=== PATIENT | male | born 1975 | race Caucasian/White ===

== ENCOUNTER 2020-05-17 16:13 | Emergency (ER) | payer BC ==
[2020-05-17] MEDS ORDERED: Lidocaine 1% 10 ML MDV INJECT ONE (17:00)
[2020-05-17] MEDS ORDERED: Diphtheria,Pertussis(Acell),Tetanus Vaccine 0.5 ML SDV IM ONE (17:42)
--- NOTE | 2020-05-17 17:55 | EDM.PDOC ---
ED HPI GENERAL MEDICAL PROBLEM - General Chief Complaint: Laceration Stated Complaint: FISH HOOK Time Seen by Provider: 05/17/20 17:25 Source of Information: Reports: Patient History Limitations: Reports: No Limitations - History of Present Illness INITIAL COMMENTS - FREE TEXT/NARRATIVE: 45 years old male was fishing today & accidently stick one part of hook into thenar eminence of right hand . NO bleeding , No swelling Onset: Today, Sudden Duration: Hour(s): (4) Quality: Reports: Ache, Dull Severity: Mild Improves with: Reports: None Worsens with: Reports: None Review of Systems - Review of Systems Review Of Systems: See Below Constitutional: Reports: No Symptoms Eyes: Reports: No Symptoms Respiratory: Reports: No Symptoms Cardiovascular: Reports: No Symptoms GI/Abdominal: Reports: No Symptoms Musculoskeletal: Reports: No Symptoms (fish hook stuck to right hand thenar eminence ) ED EXAM, GENERAL - Physical Exam Exam: See Below Exam Limited By: No Limitations General Appearance: Alert, WD/WN Head: Atraumatic Respiratory/Chest: No Respiratory Distress Cardiovascular: Normal Peripheral Pulses GI/Abdominal: Normal Bowel Sounds Back Exam: Normal Inspection Extremities: Normal Inspection, Other (fish hook struck to right hand hand thenar eminence ) Course - Vital Signs Text/Narrative:: vitals monitored area cleaned with alcohol swab 1% lidocaine infiltrated around hook on right hand eminence Hook pulled with string . patient tolerated procedure very well T dap given on left shoulder deltoid area sterile dressing done Pt walked out in a stable condition - Orders/Labs/Meds Orders: Active Orders 24 hr Category Date Time Status Vaccines to be Administered [RC] PER UNIT ROUTINE Care 05/17/20 17:42 Active Meds: Medications Discontinued Medications Generic Name Dose Route Start Last Admin Trade Name Freq PRN Reason Stop Dose Admin Diphtheria/Tetanus/Acell Pertussis 0.5 ml 05/17/20 17:42 Boostrix IM 05/17/20 17:43 .ONCE ONE Departure - Departure Time of Disposition: 06:00 Disposition: Home, Self-Care 01 Condition: Good Clinical Impression: Removal of foreign body - Discharge Information *PRESCRIPTION DRUG MONITORING PROGRAM REVIEWED*: No *COPY OF PRESCRIPTION DRUG MONITORING REPORT IN PATIENT SANDIP: No Instructions: Laceration Care, Adult Forms: ED Department Discharge - Problem List & Annotations (1) Fish hook injury of finger of right hand SNOMED Code(s): 00848941, [id number] Code(s): S69.91XA - UNSP INJURY OF RIGHT WRIST, HAND AND FINGER(S), INIT ENCNTR Status: Acute Priority: Medium Qualifiers: Encounter type: initial encounter Qualified Code(s): S69.91XA - Unspecified injury of right wrist, hand and finger(s), initial encounter - Problem List Review Problem List Initiated/Reviewed/Updated: No - My Orders Last 24 Hours: My Active Orders 05/17/20 17:42 Vaccines to be Administered [RC] PER UNIT ROUTINE - Assessment/Plan Last 24 Hours: My Active Orders 05/17/20 17:42 Vaccines to be Administered [RC] PER UNIT ROUTINE
== END 2020-05-17 17:45 | disposition home or self-care (01) ==
LOC: LB.ED 16:13
DX: S60.551A Superficial foreign body of right hand, initial encounter (principal); Z23 Encounter for immunization; W45.8XXA Other foreign body or object entering through skin, initial encounter
CPT/HCPCS: 90471; 90715; 99283